=== PATIENT | male | born 2000 | race Caucasian/White ===

== ENCOUNTER 2022-07-12 04:04 | Emergency (ER) | payer OTHER ==
[~2022-07-12] VITALS: Ht 172.7 cm; Wt 111.6 kg
[2022-07-12 04:09] VITALS: BP 110/81
--- NOTE | 2022-07-12 04:18 | NUR ---
to bed 5
[2022-07-12] MEDS ORDERED: MORPHINE SULFATE 4 MG/ML SYR IM ONE (04:20)
[2022-07-12] MEDS ORDERED: KETOROLAC 60 MG/2 ML VIAL IM ONE (04:20)
--- NOTE | 2022-07-12 04:34 | NUR ---
22yo M here for R foot pain x 1 day. No trauma or fall. Pt has history of gout. Not currently on any medication. R foot now wound, no redness, no signs of infection. Admits to 02/23 pain
[2022-07-12] MEDS ORDERED: COLC-30 PO (05:22)
[2022-07-12] MEDS ORDERED: NAPR-54 PO (05:22)
[2022-07-12] MEDS ORDERED: ALLO100T21 PO (05:22)
--- NOTE | 2022-07-12 05:26 | NUR ---
Cleared to discharge home. Instructions and prescription given. Instructed to follow up c PMD. Ambulated out of ED c steady gait.
[2022-07-12 05:28] VITALS: BP 133/64
== END 2022-07-12 05:28 | disposition home or self-care (01) ==
LOC: MED 04:04
DX: M10.9 Gout, unspecified (principal); Z79.899 Other long term (current) drug therapy
CPT/HCPCS: 96372; 99284; J1885; J2270

== ENCOUNTER 2023-08-17 20:23 | Emergency (ER) | payer OTHER ==
[~2023-08-17] VITALS: Ht 165.1 cm; Wt 113.4 kg
[~2023-08-17 20:23] MED LIST: ALLO100T21 PO; COLC-30 PO; NAPR-54 PO
[2023-08-17 20:24] VITALS: BP 163/104; PULSE 93; RESP 19; TEMP 97.6; O2SAT 97
== END 2023-08-17 22:55 | disposition left against medical advice (07) ==
LOC: MED 20:23
DX: M54.50 Low back pain, unspecified (principal); Z53.21 Procedure and treatment not carried out due to patient leaving prior to being seen by health care provider
CPT/HCPCS: 99281